=== PATIENT | female | born 1960 | race Caucasian/White ===

== ENCOUNTER 2017-02-24 10:33 | Emergency (ER) | payer OTHER ==
[2017-02-24 11:17] LABS: HEMOGLOBIN 12.8 gm/dl (12.3-15.3); RED BLOOD COUNT 4.13 M/UL (4.00-5.10); WHITE BLOOD COUNT 6.9 K/UL (4.5-11.0)
[2017-02-24 11:34] LABS: BUN/CREATININE RATIO 15 (0-10)
[2017-05-07] MEDS ORDERED: CYCLOBENZAPRINE10 MG PO (08:03)
[2017-05-07] MEDS ORDERED: HYDROCHLOROTHIA25 MG PO (08:03)
[2017-05-07] MEDS ORDERED: IBUPROFEN600 MG PO (08:04)
[2017-05-07] MEDS ORDERED: LEVOTHYROXINE112 MCG PO (08:05)
[2017-05-07] MEDS ORDERED: LISINOPRIL5 MG PO (08:05)
[2017-05-07] MEDS ORDERED: PRAVASTATIN SOD80 MG PO (08:06)
[2017-05-07] MEDS ORDERED: TRAZODONE HCL100 MG PO (08:07)
[2017-05-07] MEDS ORDERED: VALACYCLOVIR500 MG PO (08:08)
[2017-05-07] MEDS ORDERED: COLACE 100MG C100 MG PO (12:51)
[2017-05-07] MEDS ORDERED: NORCO 7.5-3251 EACH PO (12:51)
== END 2017-02-24 14:14 | disposition home or self-care (01) ==
LOC: ER1 10:33
PROVIDERS: Physician Assistant
DX: K80.20 Calculus of gallbladder without cholecystitis without obstruction (principal); N20.1 Calculus of ureter; E87.6 Hypokalemia; E78.5 Hyperlipidemia, unspecified; I10 Essential (primary) hypertension; F17.200 Nicotine dependence, unspecified, uncomplicated; Z98.51 Tubal ligation status
CPT/HCPCS: 36415; 80053; 81001; 85025; 96374; 96375; 99284; J0696; J1885; J2270; J2405; J7050; Q9962